=== PATIENT | male | born 1970 | race Caucasian/White ===

== ENCOUNTER 2017-09-08 22:37 | Emergency (ER) | payer BC, OTHER ==
[2017-09-08] MEDS ORDERED: Proparacaine 0.5% Ophth Soln 15 ML Bottle EYERT ONE (23:00)
[2017-09-08] MEDS ORDERED: Benoxinate/Fluorescein 0.4-0.25% Ophth Soln 5 ML Bottle EYERT ONE (23:24)
--- NOTE | 2017-09-08 23:37 | EDM.PDOC ---
ED HPI GENERAL MEDICAL PROBLEM - General Chief Complaint: Eye Problems Stated Complaint: SOMETHING IN EYE Time Seen by Provider: 09/08/17 23:14 Source of Information: Reports: Patient History Limitations: Reports: No Limitations - History of Present Illness INITIAL COMMENTS - FREE TEXT/NARRATIVE: The patient was getting in bed and moving blankets and pillows around and something scratched his eye or got in his eye. He has no blurred vision or double vision. He does not wear contacts. Onset: Sudden Duration: Minutes: Location: Reports: Face (Right eye) Quality: Reports: Sharp Severity: Moderate Improves with: Reports: None Worsens with: Reports: None Context: Reports: Activity (Getting into bed) Associated Symptoms: Reports: No Other Symptoms - Related Data Allergies Allergy/AdvReac Type Severity Reaction Status Date / Time No Known Allergies Allergy Verified 09/08/17 22:46 Home Meds: Home Meds Ciprofloxacin [IJD: Ciloxan 0.3% Ophth Soln] 1 drop EYERT .EVERY 4 HOURS #5 ml 09/08/17 [Rx] Past Medical History - Past Health History Medical/Surgical History: Denies Medical/Surgical History Social & Family History - Tobacco Use Smoking Status *Q: Never Smoker - Caffeine Use Caffeine Use: Reports: Coffee, Tea - Recreational Drug Use Recreational Drug Use: No ED ROS GENERAL - Review of Systems Review Of Systems: See Below Constitutional: Reports: No Symptoms HEENT: Reports: Eye Pain Respiratory: Reports: No Symptoms Cardiovascular: Reports: No Symptoms Endocrine: Reports: No Symptoms GI/Abdominal: Reports: No Symptoms : Reports: No Symptoms ED EXAM GENERAL W FULL EYE - Physical Exam Exam: See Below Exam Limited By: No Limitations General Appearance: Alert, No Apparent Distress Eye Exam: Right Eye: Corneal Abrasion (Upper cornea), Bilateral Eye: EOMI, PERRL Eyelids: Right: Lid Everted for Exam, Bilateral: Normal Appearance Conjunctiva & Sclera: Bilateral: Normal Appearance Cornea Exam: Right: Corneal Abrasion Extraocular Movements: Bilateral: Intact Course - Vital Signs Last Recorded V/S: Last Vital Signs Temp 97.7 F 09/08/17 22:49 Pulse 60 09/08/17 22:49 Resp 20 09/08/17 22:49 BP 138/80 09/08/17 22:49 Pulse Ox 97 09/08/17 22:49 - Orders/Labs/Meds Meds: Medications Discontinued Medications Generic Name Dose Route Start Last Admin Trade Name Leroy PRN Reason Stop Dose Admin Fluorescein Sodium/Benoxinate HCl 1 ml 09/08/17 23:24 09/08/17 23:29 Fluress Ophth Soln EYERT 09/08/17 23:25 1 drop ONETIME ONE Administration Proparacaine HCl 2 ml 09/08/17 23:00 09/08/17 23:01 Proparacaine 0.5% Ophth Soln EYERT 09/08/17 23:01 2 drop ONETIME ONE Administration Departure - Departure Time of Disposition: 23:35 Disposition: Home, Self-Care 01 Condition: Good Clinical Impression: Corneal abrasion Qualifiers: Encounter type: initial encounter Laterality: right Qualified Code(s): S05.01XA - Injury of conjunctiva and corneal abrasion without foreign body, right eye, initial encounter - Discharge Information Prescriptions: Ciprofloxacin [IJD: Ciloxan 0.3% Ophth Soln] 1 drop EYERT .EVERY 4 HOURS #5 ml Additional Instructions: Put 1 drip into your right eye every 4 hours while awake for 1 week with the ciprofloxacin. Follow up with your catholic priest if you do not feel better in a few days. Please return if you get worse.
== END 2017-09-08 23:40 | disposition home or self-care (01) ==
LOC: JD.ED 22:37
DX: S05.01XA Injury of conjunctiva and corneal abrasion without foreign body, right eye, initial encounter (principal); X58.XXXA Exposure to other specified factors, initial encounter
CPT/HCPCS: 99283